=== PATIENT | male | born 1935 | race Caucasian/White ===

== ENCOUNTER 2025-03-25 10:00 | Outpatient (RCR) | payer MEDICARE, SELFPAY | END 2025-03-25 10:35 | disposition home or self-care (01) | LOC: HO.PTCHIC 10:00 | PROVIDERS: PCP Internal Medicine; Visit Provider Physical Medicine & Rehabilitation | DX: M54.50 Low back pain, unspecified (principal); M48.00 Spinal stenosis, site unspecified | CPT/HCPCS: 97110; 97162 ==